=== PATIENT | male | born 1950 | race Caucasian/White ===

== ENCOUNTER → 2021-09-17 | Outpatient (CLI) | payer MEDICARE, OTHER ==
--- NOTE | 2021-09-17 13:47 | RAD ---
EXAM: XR CHEST 2V 09/17/2021 11:39 AM CLINICAL INDICATION: Malignant melanoma of skin COMPARISON: None TECHNIQUE: PA and lateral views of the chest FINDINGS: The heart is normal in size. The lungs are normally expanded. There are mild left basilar opacities, likely atelectasis. No pleural effusion or pneumothorax. No acute osseous abnormality. IMPRESSION: Mild left basilar opacities, likely atelectasis. Electronically signed by: Angelica Morales MD (09/17/2021 1:45 PM) [id number]
== END ==
LOC: RAD 11:17
PROVIDERS: ATTEND Otolaryngology
DX: C43.9 Malignant melanoma of skin, unspecified (principal)
CPT/HCPCS: 71046